=== PATIENT | male | born 1950 | race Caucasian/White ===

== ENCOUNTER 2023-10-10 09:02 | Observation (INO) | payer MEDICARE, OTHER, SELFPAY ==
[2023-10-10] VITALS (10 sets, daily range): BP systolic 127–179; BP diastolic 93–98; PULSE 55–129; RESP 20–30; TEMP 36.1–37.2; O2SAT 95–99; BMI 38.0
--- NOTE | ~2023-10-10 | XR_ITS ---
EXAMINATION: XR chest 2V DATE: 10/10/2023 09:28 INDICATION: Dyspnea. Atrial fibrillation. Hypertension. TECHNIQUE: PA and lateral views of the chest were obtained. COMPARISON: Chest radiograph dated 04/21/2019 FINDINGS: Mild streaky opacities in bilateral lower lung zones likely primarily atelectasis. Peripheral linear opacities at the lateral right lower lung zone consistent could represent additional atelectasis alth ough also raises possibility of Jocelin B lines in the setting of mild pulmonary edema. No pleural eff usion or pneumothorax. Cardiomegaly. Air-fluid level posterior to the heart within a large hiatal her latonya. Left pectoral implantable secured entrance monitor. Chronic T12 compression fracture spanned by instrumen maurice posterior spinal fusion with bilateral vertical rods, laminar hooks and pedicle screws beginning cephalad at T9 and extending below the inferior margin of the [id number]-roif at L2. 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 Multiple now chronic healed left-sided rib fract ures. IMPRESSION: 1. Linear opacities in bilateral lower lung zones most likely combination of atelectasis and mild pul monary edema. 2. Cardiomegaly. 3. Large hiatal hernia. Reviewed, dictated and finalized at location A. IMPRESSION: 1. Linear opacities in bilateral lower lung zones most likely combination of at electasis and mild pulmonary edema. 2. Cardiomegaly. 3. Large hiatal hernia.
--- NOTE | 2023-10-10 09:10 | ECG_ITS ---
Test Date: 2023-10-10 09:13:40 Measurements Intervals [place] Rate: 119 P: 0 [place]: 0 QRS: -19 QRSD: 94 T: 60 QT: 306 QTc: 432 Interpretive Statements ATRIAL FIBRILLATION WITH RAPID VENTRICULAR RESPONSE TRANSIENT VENTRICULAR TACHYCARDIA AND VENTRICULAR PREMATURE COMPLEXES NONSPECIFIC ST & T-WAVE ABNORMALITY- HIGH LATERAL LEADS BASELINE WANDER- V1, V3 ABNORMAL ECG No previous ECG available for comparison Electronically Signed On 10-10-2023 09:59:40 CDT by August Dunn D.O.
[2023-10-10 09:25] LABS: Basophils Percent Auto 0.6 % (0.2-1.2); Eosinophils Absolute Auto 0.3 K/mm3 (0-0.3); Eosinophils Percent Auto 3.7 % (0-4.4); Hematocrit 45.6 % (42.0-52.0); Hemoglobin 15.1 g/dL (14.0-18.0); Immature Granulocyte Absolute 0.03 K/mm3 (0.00-0.031); Immature Granulocyte Percent A 0.4 % (0-0.5); Lymphocytes Absolute Auto 1.01 K/mm3 (0.9-3.2); Lymphocytes Percent Auto 14.8 % (18.3-44.2); Mean Corpuscular HGB Conc 33.1 g/dl (32-36); Mean Corpuscular Hemoglobin 31.8 pg (26-34); Mean Platelet Volume 10.7 fl (7.4-10.4); Monocytes Absolute Auto 0.7 K/mm3 (0.1-0.6); Monocytes Percent Auto 10.2 % (2.6-8.5); Neutrophils Absolute Auto 4.8 K/mm3 (1.3-6.7); Neutrophils Percent Auto 70.3 % (45.5-73.1); Platelet Count Result 148 k/mm3 (150-375); Red Blood Count 4.75 M/mm3 (4.6-6.20); Red Cell Distribution Width 15.1 % (11.5-14.5); White Blood Count 6.8 K/mm3 (4.5-10.0)
--- NOTE | 2023-10-10 09:25 | ED.SOB ---
HPI - SOB/Dyspnea General Chief Complaint: Shortness of Breath/Dyspnea <MIDNY Howard Last Filed: 10/10/23 12:34> Stated Complaint: shortness of breath <MINDY Howard Last Filed: 10/10/23 12:34> Time Seen by Provider: 10/10/23 09:09 <MINDY Howard Last Filed: 10/10/23 12:34> Source: patient <MINDY Howard Last Filed: 10/10/23 12:34> Mode of arrival: ambulatory <MINDY Howard Last Filed: 10/10/23 12:34> Limitations: no limitations <MINDY Howard Last Filed: 10/10/23 12:34> History of Present Illness HPI Narrative: Patient is a 73 y/o male, with PMH of AFIB on Xarelto, who presents to the ED with c/o SOB. patient reports having increased shortness breath over the last 2 days, worse with lying flat and with exertion. He notes he has not been able to sleep well the last 2 nights. He began feeling short of breath while eating a bowl of cereal today, which prompted his presentation. he denies history of similar shortness of breath. He does report recent cough, congestion. Denies chest pain, fevers. Denies lower extremity pain or swelling. Denies previous history of lung issues, CHF. <MINDY Howard Last Filed: 10/10/23 12:34> Related Data Home Medications: Home Medications Medication Instructions Recorded Confirmed acetaminophen 500 mg tablet 1,000 mg PO BID PRN Pain 04/21/19 10/10/23 cholecalciferol (vitamin D3) 50 2,000 unit PO DAILY 04/21/19 10/10/23 mcg (2,000 unit) tablet ferrous sulfate 325 mg (65 mg 325 mg PO DAILY 04/21/19 10/10/23 iron) tablet fluticasone propionate 50 2 spray intranasal DAILY 04/21/19 10/10/23 mcg/actuation nasal spray,suspension (Allergy Relief (fluticasone)) lisinopril 40 mg tablet 20 mg PO BID 04/21/19 10/10/23 loratadine 10 mg tablet 10 mg PO DAILY 04/21/19 10/10/23 rivaroxaban 20 mg tablet (Xarelto) 20 mg PO DAILY 04/21/19 10/10/23 sildenafil 100 mg tablet 50 mg PO DAILY PRN Erectile 04/21/19 10/10/23 Dysfunction metoprolol succinate 25 mg 12.5 mg PO BID 10/10/23 10/10/23 tablet,extended release 24 hr rosuvastatin 10 mg tablet 10 mg PO DAILY 10/10/23 10/10/23 tramadol 50 mg tablet 50 mg PO Q6H PRN Pain (Scale Score 10/10/23 10/10/23 4-6) <MINDY Howard Last Filed: 10/10/23 12:34> Allergies/Adverse Reactions: Allergies Allergy/AdvReac Type Severity Reaction Status Date / Time No Known Allergies Allergy Verified 10/10/23 09:22 <MINDY Howard Last Filed: 10/10/23 12:34> Review of Systems Review of Systems: CONSTITUTIONAL: Denies fever, chills, or sweats. ENT: See HPI. CARDIOVASCULAR: see HPI. RESPIRATORY: See HPI. MUSCULOSKELETAL: Denies back pain, extremity pain, myalgia. <MINDY Howard Last Filed: 10/10/23 12:34> All systems reviewed & are unremarkable except as noted in HPI and below <MINDY Howard Last Filed: 10/10/23 12:34> PMF Past Medical History Medical History: Medical History Allergic rhinitis Atrial fibrillation GERD (gastroesophageal reflux disease) Hyperlipidemia Hypertension <MINDY Howard Last Filed: 10/10/23 12:34> Surgical History Surgical History: Surgical History History of back surgery History of repair of right rotator cuff History of total bilateral knee replacement S/P ablation of atrial fibrillation <Alanna Huggins PA-C - Last Filed: 10/10/23 12:34> Social History Social History: Social History Smoking status: Former smoker Tobacco type: cigarettes Second hand tobacco smoke exposure: No Alcohol intake: never Substance use: never Substance use type: does not use Do You Feel Safe in
[2023-10-10 09:35] LABS: INR 2.1; Prothrombin Time 23.9 Seconds (11.1-14.7)
[2023-10-10 09:36] LABS: Partial Thromboplastin Time 39.2 Seconds (22.3-36.8)
[2023-10-10 09:37] LABS: Alanine Aminotransferase 24 U/L (6-50); Albumin Level 4.6 g/dL (3.5-5.1); Alkaline Phosphatase 40 U/L (38-126); Anion Gap 11 mmol/L (4-12); Aspartate Amino Transferase 35 U/L (17-59); Bilirubin,Total 0.8 mg/dL (0.2-1.3); Blood Urea Nitrogen 13 mg/dL (9-20); Calcium 9.7 mg/dL (8.4-10.2); Carbon Dioxide 25 mmol/L (22-30); Chloride 105 mmol/L (98-107); Estimated CRCL calculation 90 ml/min; Estimated Glomerular Filt Rate > 60; Glucose 168 mg/dL (65-110); Potassium 4.8 mmol/L (3.4-5.0); Sodium 141 mmol/L (137-145)
[2023-10-10 09:48] LABS: NT Pro B Type Natriuretic Pept 1020 pg/mL (19.9-100); Troponin I 0.013 ng/mL (0.000-0.034)
[2023-10-10 09:52] LABS: Appearance Urine Clear (Clear); Bilirubin Urine Negative (Negative); Blood Urine Negative (Negative); Color Urine Yellow (Yellow); Glucose Urine UA Negative (Negative); Ketones Urine Negative (Negative); Leukocyte Esterase Ur Negative LEU/UL (Negative); Nitrate Urine Negative (Negative); Protein Urine Negative (Negative); Specific Grav Ur 1.009 (1.001-1.035); Urobilinogen Urine 0.2 mg/dL (<2.0); pH Urine 5.5 (5.0-9.0)
[2023-10-10 09:57] LABS: Add Urine Microscopic? NO
[2023-10-10 10:15] LABS: Influenza A QL RT-PCR Negative (Negative); Influenza B QL RT-PCR Negative (Negative); RSV RNA, RT-PCR Negative (Negative); SARS-CoV-2 RNA PCR Negative (Negative)
[2023-10-10 10:46] LABS: Magnesium 1.9 mg/dL (1.6-2.3)
[2023-10-10] MEDS: METOPROLOL TARTRATE INJ 5 MG/5 ML VIAL IV PUSH (12:28)
[2023-10-10] MEDS: FUROSEMIDE INJ 40 MG/4 ML VIAL IV PUSH (12:28)
[2023-10-10 12:43] LABS: Troponin I 0.013 ng/mL (0.000-0.034)
--- NOTE | 2023-10-10 13:37 | PC.NURSE ---
This patient, Jose So, was admitted to Medical Room 345-01. Patient/family oriented to hospital policies and general routines including ID bracelet, bed and alarms, visiting hours, pain management, procedures, bathroom and other care routines, personal items, smoking policy, room service/diet, and visiting hours. Information on how to activate the Rapid Response Team has been discussed. Patient/Family are encouraged to report perceived risks to care and to ask questions if they do not understand what they are told or what they should do.
--- NOTE | 2023-10-10 14:15 | PM.IMHP ---
H&P: HPI History of Present Illness Date/Time: 10/10/23 14:15 Chief Complaint: Shortness of breath/dyspnea Narrative: This is a 73-year-old male with a significant past medical history of AFib, GERD, hypertension who presents with a 2 day history of shortness of breath and dyspnea. Patient provides the following history. He states that he has had shortness of breath and dyspnea over the last couple of days which worsens whenever he was lying flat. He states that he has not gotten much sleep over the last few days. Then this morning he noted he was short of breath just when eating breakfast and that prompted him to come to the hospital for further work up. Patient denies any fever, chills, nausea, vomiting, diarrhea, abdominal pain, chest pain. Workup in the hospital included a chest x-ray which shown linear opacities in bilateral lower lung zone suggestive of pulmonary edema, cardiomegaly, large hiatal hernia. EKG shown A fib with RVR with a rate of 119. Initial labs showed a normal white blood cell count of 6.8, platelet count of 148, troponin was negative x2, proBNP 1020. UA was obtained and was negative for bacteria. Respiratory panel was negative for influenza a and B, RSV, COVID. Patient was given 40 mg of IV push Lasix well in the ED along with 5 mg IV push of metoprolol due to a heart rate of 119-129. Review of Systems Review of Systems: All systems reviewed & are unremarkable except as noted in HPI and below Constitutional: Constitutional: Reports as per HPI and Reports no additional constitutional complaints Eyes: Eyes: Reports as per HPI and Reports no additional eye complaints ENT: Reports system reviewed and no additional complaints, except as documented and Reports as per HPI Cardiovascular: Cardiovascular: Reports as per HPI and Reports no additional cardiovascular complaints Respiratory: Respiratory: Reports as per HPI and Reports no additional respiratory complaints Gastrointestinal: Gastrointestinal: Reports as per HPI and Reports no additional gastrointestinal complaints Genitourinary: Genitourinary: Reports no additional male genitourinary complaints and Reports as per HPI Musculoskeletal: Musculoskeletal: Reports no additional musculoskeletal complaints and Reports as per HPI Integumentary/Breasts: Skin/Breast: Reports system reviewed and no additional complaints, except as docu and Reports as per HPI Neurologic: Reports system reviewed and no additional complaints, except as documented and Reports as per HPI Psychiatric: Psychiatric: Reports no additional psychiatric complaints and Reports as per [facility] Past Medical History Medical History Allergic rhinitis Atrial fibrillation GERD (gastroesophageal reflux disease) Hyperlipidemia Hypertension Surgical History Surgical History History of back surgery History of repair of right rotator cuff History of total bilateral knee replacement S/P ablation of atrial fibrillation Social History Social History Smoking status: Former smoker Tobacco type: cigarettes Second hand tobacco smoke exposure: No Alcohol intake: never Substance use: never Substance use type: does not use Do You Feel Safe in your Home?: Yes Lack of Transportation: No Lack of Food: Never True Current Housing: I Have Housing Concerned About Future Housing: No Difficulty Paying Gas/Electric Bills: No Difficulty Paying for Meds: No Currently Unemployed: No Education: Decline to Answer Difficulty w/ Childcare or Family Care: No Gender identity (if verbalized by the patient): Male Spiritual care concerns: No Meds Home Medications and Allergies Home Medications Medication Instructions Recorded Confirmed Type acetaminophen 500 mg tablet 1,000 mg PO BID PRN Pain 04/21/19 10/10/23
[2023-10-10 15:54] LABS: Troponin I 0.016 ng/mL (0.000-0.034)
[2023-10-10] MEDS: METOPROLOL SUCCINATE EXT REL 12.5 MG TABCR PO (20:12)
[2023-10-10] MEDS: lisinopriL 20 MG TABLET PO (20:12)
[2023-10-10 20:59] LABS: Glucose Point of Care 118 mg/dl (65-105)
[2023-10-11] VITALS: PULSE 109
[2023-10-11 04:00] VITALS: PULSE 77
[2023-10-11] MEDS: traMADol HCL (*CRX) 50 MG TABLET PO (05:29)
--- NOTE | 2023-10-11 06:00 | ECHO_ITS ---
Patient Info Name: Jose So Age: 73 years : 1950 Gender: Male Ht: 68 in Wt: 249 lbs BSA: 2.38 m2 HR: 77 bpm BP: 171 / 98 mmHg Heart Rhythm: Atrial Fibrillation, Tachycardia Technical Quality: Fair Exam Date: 10/11/2023 9:43 AM Exam Location: Echo Lab Patient Status: Inpatient Admit Date: 10/10/2023 Staff Ordering Physician: Alanna Huggins PA-C Manager Food: Kate Palm RDCS Attending Provider: Beka Yuan MD Referring Physician: Bhavna HUGHES; Exam Type: CA echo dop color flow w con Study Info Indications - new onset CHF, SOB, Orthopenea, TOMLINSON Complete two-dimensional, color flow and Doppler transthoracic echocardiogram is performed with contrast to opacify the left ventricle and to improve the deliniation of the left ventricle endocardial borders. Contrast/Agitated Saline Contrast/Ag. Saline: Definity Amount: 2.00 ml Administered By: Kate Palm RDCS Existing IV Access: Yes IV Access Condition: patent with no signs of infiltration Summary 1. Left ventricular chamber dimension is normal. 2. Left ventricular systolic function is mildly reduced, estimated at 40-45%. Of note, patient in atrial fibrillation with RVR at the time of the study. 3. There is mildly increased left ventricular wall thickness. 4. Right ventricular systolic function is normal. 5. Left atrial chamber dimension is severely enlarged. 6. Right atrial chamber dimension is mildly enlarged. 7. There is mild mitral valve regurgitation. 8. There is mild tricuspid valve regurgitation. Left Ventricle Left ventricular chamber dimension is normal. Left ventricular systolic function is mildly reduced, estimated at 40-45%. Of note, patient in atrial fibrillation with RVR at the time of the study. There is mildly increased left ventricular wall thickness. The left ventricular diastolic function is indeterminate. Right Ventricle Right ventricular chamber dimension is normal. Right ventricular systolic function is normal. Left Atria Left atrial chamber dimension is severely enlarged. Right Atria Right atrial chamber dimension is mildly enlarged. Atrial Septum Intact interatrial septum visualized by color flow imaging. Aortic Valve The aortic valve is trileaflet. There is no aortic valve stenosis. There is trace aortic valve regurgitation. There is mild aortic valve calcification. Pulmonic Valve The pulmonic valve is not well visualized. There is trace pulmonic regurgitation. Mitral Valve The mitral valve has thickened leaflets. There is mild mitral valve regurgitation. The mitral valve annulus is moderately calcified. Tricuspid Valve There is mild tricuspid valve regurgitation. Pericardium/Pleural There is no pericardial effusion. Inferior Vena Cava Normal inferior vena cava with >50% collapse upon inspiration consistent with normal right atrial pressure, 3 mmHg. Aorta The aortic root size at the sinus of Valsalva is normal. Left Ventricular Outflow Tract Name Value Normal LVOT 2D LVOT Diameter 2.04 cm LVOT Doppler LVOT Peak Gradient 3 mmHg LVOT Mean Gradient 2 mmHg
[2023-10-11 08:00] VITALS: PULSE 81
[2023-10-11] MEDS: ROSUVASTATIN 10 MG TABLET PO (08:25)
[2023-10-11] MEDS: lisinopriL 20 MG TABLET PO (08:25)
[2023-10-11] MEDS: CHOLECALCIFEROL 1,000 UNITS TABLET 2000 UNITS PO (08:25)
[2023-10-11] MEDS: RIVAROXABAN 20 MG TABLET PO (08:25)
[2023-10-11] MEDS: FERROUS SULFATE 325 MG TABLET DR PO (08:25)
[2023-10-11] MEDS: PANTOPRAZOLE 40 MG TABLET PO (08:25)
[2023-10-11 08:26] VITALS: PULSE 79
[2023-10-11] MEDS: FLUTICASONE PROPIONATE 0.05% NA SPR 16 GM BTL (*BKC) 2 SPRAY NASAL (08:26)
[2023-10-11] MEDS: METOPROLOL SUCCINATE EXT REL 12.5 MG TABCR PO (08:26)
[2023-10-11] MEDS: PERFLUTREN LIPID MICROSPHERES 1.5 ML VIAL DILUTED TO 10 ML TOTAL VOLUME IV PUSH (10:17)
--- NOTE | 2023-10-11 11:02 | IVDEFINITY ---
Prior to administration of IV Definity the patient was educated on the risks and benefits of the imaging enhancing agent including potential adverse side effects. The patient verbalized understanding. Allergies were verified. No exclusion criteria were identified and at least one of the following inclusion criteria were met: 1) physician request, 2) patient technically difficult to image (per the [place] [employer] Echocardi[employer] guidelines of two or more segments not discernable within the apical view), or 3) questionable left ventricular function. ?
[2023-10-11 11:09] LABS: Basophils Percent Auto 0.6 % (0.2-1.2); Eosinophils Absolute Auto 0.3 K/mm3 (0-0.3); Eosinophils Percent Auto 3.8 % (0-4.4); Hematocrit 49.4 % (42.0-52.0); Hemoglobin 16.1 g/dL (14.0-18.0); Immature Granulocyte Absolute 0.03 K/mm3 (0.00-0.031); Immature Granulocyte Percent A 0.5 % (0-0.5); Lymphocytes Absolute Auto 1.16 K/mm3 (0.9-3.2); Lymphocytes Percent Auto 17.4 % (18.3-44.2); Mean Corpuscular HGB Conc 32.6 g/dl (32-36); Mean Corpuscular Hemoglobin 31.5 pg (26-34); Mean Corpuscular Volume 96.7 fl (80-100); Mean Platelet Volume 10.8 fl (7.4-10.4); Monocytes Absolute Auto 0.7 K/mm3 (0.1-0.6); Monocytes Percent Auto 11.1 % (2.6-8.5); Neutrophils Absolute Auto 4.4 K/mm3 (1.3-6.7); Neutrophils Percent Auto 66.6 % (45.5-73.1); Platelet Count Result 173 k/mm3 (150-375); Red Blood Count 5.11 M/mm3 (4.6-6.20); Red Cell Distribution Width 14.8 % (11.5-14.5); White Blood Count 6.7 K/mm3 (4.5-10.0)
[2023-10-11 11:22] LABS: Alanine Aminotransferase 24 U/L (6-50); Albumin Level 4.5 g/dL (3.5-5.1); Alkaline Phosphatase 40 U/L (38-126); Anion Gap 11 mmol/L (4-12); Aspartate Amino Transferase 37 U/L (17-59); Bilirubin,Total 0.7 mg/dL (0.2-1.3); Blood Urea Nitrogen 16 mg/dL (9-20); Calcium 9.8 mg/dL (8.4-10.2); Carbon Dioxide 31 mmol/L (22-30); Chloride 100 mmol/L (98-107); Estimated CRCL calculation 81 ml/min; Estimated Glomerular Filt Rate > 60; Glucose 161 mg/dL (65-110); Magnesium 1.8 mg/dL (1.6-2.3); Potassium 4.3 mmol/L (3.4-5.0); Sodium 142 mmol/L (137-145)
[2023-10-11 12:00] VITALS: PULSE 99
--- NOTE | 2023-10-11 14:28 | PM.DS ---
DS: Admitting Diagnosis Discharge Date 10/11/23 Admitting Diagnosis CHF atrial fibrillation GERD HTN hyperlipidemia DS: Discharge Diagnosis Discharge Diagnosis (1) CHF (congestive heart failure): Code(s): I50.9 - Heart failure, unspecified Status: Acute (2) Atrial fibrillation: Code(s): I48.91 - Unspecified atrial fibrillation Status: Acute (3) GERD (gastroesophageal reflux disease): Code(s): K21.9 - Gastro-esophageal reflux disease without esophagitis Status: Acute (4) Hypertension: Code(s): I10 - Essential (primary) hypertension Status: Acute (5) Hyperlipidemia: Code(s): E78.5 - Hyperlipidemia, unspecified Status: Acute DS: Summary Hospital Course Reason for hospitalization: CHF atrial fibrillation GERD HTN hyperlipidemia Hospital Course: This is a 73-year-old male with a significant past medical history of AFib, GERD, hypertension who presents with a 2 day history of shortness of breath and dyspnea. Patient provides the following history. He states that he has had shortness of breath and dyspnea over the last couple of days which worsens whenever he was lying flat. He states that he has not gotten much sleep over the last few days. Then this morning he noted he was short of breath just when eating breakfast and that prompted him to come to the hospital for further work up. Patient denies any fever, chills, nausea, vomiting, diarrhea, abdominal pain, chest pain. Workup in the hospital included a chest x-ray which shown linear opacities in bilateral lower lung zone suggestive of pulmonary edema, cardiomegaly, large hiatal hernia. EKG shown A fib with RVR with a rate of 119. Initial labs showed a normal white blood cell count of 6.8, platelet count of 148, troponin was negative x2, proBNP 1020. UA was obtained and was negative for bacteria. Respiratory panel was negative for influenza a and B, RSV, COVID. Patient was given 40 mg of IV push Lasix well in the ED along with 5 mg IV push of metoprolol due to a heart rate of 119-129. 10/11/23: Patient feeling much better today. VSS, he is afebrile, currently on room air. He is stable for discharge at this time. Echo was obtained and pending results. We will call with results once they are made available. He did increased to 25 mg BID on his Metoprolol ER for better rate control. Final diagnosis: A fib RVR, pulmonary edema Status at Discharge Cognitive/behavioral status at discharge: Alert and oriented x3 Functional status at discharge: independent ambulation Overall status at discharge: patient is progressing back to baseline Time Spent with Patient Time attestation: Total time spent providing and/or coordinating discharge services: Time spent: Greater than 30 minutes Exam Narrative: General: In no acute distress, well nourished Cardiac: Normal S1 and S2. Irregular rate and rhythm, A Fib, No murmur, gallops or friction rubs, peripheral pulses intact. Respiratory: Lungs clear to auscultation, no adventitious lung sounds, currently on room air Gastrointestinal: soft, non-distended, non-tender, normoactive bowel sounds. Neuro: Alert and oriented x4 DS: Data Data Completed and Pending Completed studies during hospitalization: CXR Pending studies at discharge: None Labs on day of discharge: Labs from last 24 hours 10/11/23 10/10/23 10/10/23 11:01 20:15 15:26 WBC 6.7 RBC 5.11 Hgb 16.1 Hct 49.4 MCV 96.7 MCH 31.5 MCHC 32.6 RDW 14.8 H Plt Count 173 MPV 10.8 H Immature Gran % (Auto) 0.5 Neut % (Auto) 66.6 Lymph % (Auto) 17.4 L [place] % (Auto) 11.1 H Eos % (Auto) 3.8 Baso % (Auto) 0.6 Lymph # (Auto) 1.16 [place] # (Auto) 0.7 H Eos # (Auto) 0.3 Baso # (Auto) 0.0 Abs Immat Gran (auto) 0.03 Absolute Neuts (auto) 4.4 Absolute Nucleated RBC 0.000 Nucleated RBC % 0.0 Sodium 142 Potassium 4.3 Chloride 100 Carbon Dioxi
== END 2023-10-11 15:20 | disposition home or self-care (01) ==
LOC: ANHED 12:34 → ANH3MED 13:28
PROVIDERS: Emergency Medicine; Nurse Practitioner Acute Care; Admitting Provider Internal Medicine; Emergency Provider Physician Assistant; Visit Provider Student in an Organized Health Care Education/Training Program
DX: I11.0 Hypertensive heart disease with heart failure (principal); I50.9 Heart failure, unspecified; R06.02 Shortness of breath; I48.91 Unspecified atrial fibrillation; I08.1 Rheumatic disorders of both mitral and tricuspid valves; E78.5 Hyperlipidemia, unspecified; K21.9 Gastro-esophageal reflux disease without esophagitis; Z87.891 Personal history of nicotine dependence; Z79.01 Long term (current) use of anticoagulants; Z20.822 Contact with and (suspected) exposure to COVID-19
CPT/HCPCS: 36415; 71046; 80053; 81003; 82948; 83735; 83880; 84484; 85025; 85610; 85730; 87637; 93005; 96374; 96375; 99285; A9270; C8929; G0378; J1940; Q9957